=== PATIENT | female | born 1995 | race Caucasian/White ===

== ENCOUNTER 2018-11-27 04:55 | Inpatient (IN) | payer OTHER ==
[2018-11-27] MEDS ORDERED: AMPICILLIN SODIUM 2 GM VIAL ONE (05:43)
[2018-11-27 05:50] VITALS: BMI 27.1
[2018-11-27] MEDS ORDERED: AMPICILLIN - 2 GM in SODIUM CHLORIDE 100 ML IVPB ONE (06:05)
[2018-11-27] MEDS ORDERED: DEXTROSE 5%-LACTATED RINGERS 1,000 ML IV SCH (06:05)
[2018-11-27 06:39] LABS: BASO % 0.4 % (0-2.0); EOS % 1.1 % (0-4.5); HEMATOCRIT 40.4 % (32.4-45.2); HEMOGLOBIN 14.5 GM/dL (10.7-15.3); LYMPH % 20.6 % (8-40); MCH 35.3 pg (25.7-33.7); MCHC 35.9 g/dl (32.0-36.0); MEAN CELL VOLUME 98.2 fl (80-96); MEAN PLT VOLUME 10.7 fl (7.5-11.1); MONO % 8.2 % (3.8-10.2); NEUT % 69.7 % (42.8-82.8); PLATELET COUNT 114 K/MM3 (134-434); RBC 4.11 M/mm3 (3.60-5.2); WHITE BLOOD COUNT 7.6 K/mm3 (4.0-10.0)
[2018-11-27 07:06] LABS: ANION GAP 10 MMOL/L (8-16); BLOOD UREA NITROGEN 9 mg/dL (7-18); CALCIUM 8.5 mg/dL (8.5-10.1); CHLORIDE 109 mmol/L (98-107); CO2 19 mmol/L (21-32); CREATININE 0.6 mg/dL (0.55-1.3); GLUCOSE,RANDOM 82 mg/dL (74-106); POTASSIUM 3.8 mmol/L (3.5-5.1); SODIUM 138 mmol/L (136-145)
--- NOTE | 2018-11-27 08:16 | HP ---
Past Medical History - Primary Care Physician PCP:: Maryjane Casper - Admission Chief Complaint: 23 Yrs 40.2 weeks IUP onset LP since 4.00AM & SROM since 4.30 AM . 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 Weeks Gestation by Dates: 40.2 ...EDC by Dates: 11/25/18 ...EDC by Sono: 11/25/18 (40.2 weeks ) Infectious Disease: No: AIDS, HIV, STD's, Tuberculosis Psych: No: Addictions, Anxiety, Bipolar, Depression, Panic, Psychosis, Schizophrenia, Other - Past Surgical History Past Surgical History: Yes: None Hx Myomectomy: No Hx Transabdominal Cerclage: No - Smoking History Smoking history: Never smoked Have you smoked in the past 12 months: No - Alcohol/Substance Use Hx Alcohol Use: No History of Substance Use: reports: None Home Medications - Allergies Allergies/Adverse Reactions: Allergies Allergy/AdvReac Type Severity Reaction Status Date / Time No Known Allergies Allergy Verified 11/27/18 05:38 - Home Medications Home Medications: Ambulatory Orders Vitamins (Sjr) - 1 tab PO DAILY 02/25/19 Physical Exam - Maternity Vital Signs: Vital Signs Temperature 98.0 F 11/27/18 05:44 Pulse Rate 63 11/27/18 05:44 Respiratory Rate 20 11/27/18 05:44 Blood Pressure 114/63 11/27/18 05:44 O2 Sat by Pulse Oximetry (%) Constitutional: Yes: Well Nourished Eyes: Yes: WNL HENT: Yes: WNL Neck: Yes: WNL Cardiovascular: Yes: WNL Lungs: Clear to auscultation Breast(s): Yes: WNL - Abdominal Exam/OB Fundal Height: 38 Number of Fetuses: Single Presentation: Vertex Contractions: Yes Regularity: Regular (2-5 min) Intensity: Mild/Mod Monitor Mode: External Heart Rate (range): 125 Heart Rate [facility] Category: I Accelerations: Uniform Decelerations: None - Vaginal Exam/OB Dilatation (cm): 1 cm Effacement (%): 50 Amniotic Membrane Status: Ruptured Amniotic Fluid: Yes: Clear Presentation: Vertex/Position Station: -3 - Physical Exam Musculoskeletal: Yes: WNL Extremities: Yes: WNL. No: Calf Tenderness Edema: No Integumentary: Yes: Tattoos Deep Tendon Reflex Grade: Normal +2 ...Motor Strength: WNL Psychiatric: Yes: WNL, Alert, Oriented - Labs Lab Results: CBC, BMP 11/27/18 06:05 11/27/18 06:05 Problem List - Problems (1) Post-term , 40-42 weeks of gestation Code(s): O48.0 - POST-TERM (2) SROM (spontaneous rupture of membranes) Code(s): CKJ4858 - (3) Positive GBS test Code(s): B95.1 - STREPTOCOCCUS, GROUP B, CAUSING DISEASES CLASSD ELSWHR Assessment/Plan 23 years 40.2 weeks SROM , in early labor GBS pos , rx IV Ampicillin prophylaxis Plan Trial of labor for Vaginal delivery I handed over care to Dr Villalba stitch bonding machine tender helper at 8.00AM for labor management
[2018-11-27 08:44] LABS: INR 1.01 (0.83-1.09); PROTHROMBIN TIME (PATIENT) 11.9 SEC (9.7-13.0)
[2018-11-27 08:47] LABS: ACTIVATED PTT 29.2 SECONDS (25.2-36.5)
--- NOTE | 2018-11-27 09:28 | PN ---
Progress Note, Labor Vaginal Exam #1 Labor Exam Time: 09:27 Heart Rate (range): Cat I Dilatation: 3 Effacement (%): 70 Amniotic Membrane Status: Intact Presentation: Vertex/Position Station: -3 Remarks: Patient comfortable with ctx. Cervical change Wants to continue walking Anticipate SARA Villalba MD
[2018-11-27] MEDS: AMPICILLIN - 1 GM in SODIUM CHLORIDE 100 ML IVPB SCH ×4 (10:00→22:10)
[2018-11-27] MEDS: DEXTROSE 5%-LACTATED RINGERS 1,000 ML IV SCH (10:11)
[2018-11-27] MEDS ORDERED: BUTORPHANOL TARTRATE 1 MG/ML VIAL IVPB ONE (11:56)
[2018-11-27] MEDS ORDERED: PROMETHAZINE HCL 25 MG/1 ML VIAL IVPB ONE (11:56)
[2018-11-27] MEDS ORDERED: PROMETHAZINE HCL 25 MG/1 ML VIAL ONE (16:08)
[2018-11-27] MEDS ORDERED: BUTORPHANOL TARTRATE 1 MG/ML VIAL ONE ×2 (16:08)
--- NOTE | 2018-11-27 17:38 | PN ---
Progress Note, Labor Vaginal Exam #2 Labor Exam Date: 11/27/18 Labor Exam Time: 16:05 Heart Rate (range): Cat I Dilatation: 3 Effacement (%): 70 Presentation: Vertex/Position Station: -2 Remarks: Cervix unchanged Start pitocin Anticipate
[2018-11-27] MEDS ORDERED: OXYTOCIN 30 UNITS in 0.9% NS 30 UNIT/500 ML INFUS.BAG IVPB ONE (17:40)
[2018-11-27] MEDS: OXYTOCIN 30 UNITS in 0.9% NS 30 UNIT/500 ML INFUS.BAG IVPB SCH (17:45)
[2018-11-27] MEDS ORDERED: AMPICILLIN SODIUM 1 GM VIAL ONE ×2 (17:56→22:22)
[2018-11-27] MEDS ORDERED: FENTANYL/BUPIVACAINE/NS/PF - PCEA - 50 ML DISP.SYRIN EP ONE (19:21)
--- NOTE | 2018-11-27 19:21 | PN ---
Progress Note, Labor Vaginal Exam #3 Labor Exam Date: 11/27/18 Labor Exam Time: 19:20 Heart Rate (range): Cat I Dilatation: 4 Effacement (%): 90 Amniotic Membrane Status: Ruptured Presentation: Vertex/Position Station: -2 Remarks: More uncomfortable Epidural Continue pitocin D/C to home Maira Villalba MD
[2018-11-27] MEDS ORDERED: NALOXONE HCL 0.4 MG/ML VIAL IVPUSH PRN (20:18)
[2018-11-27] MEDS ORDERED: LIDO 2%/EPI 1:200000 PRESRVFRE (20 ML SDVIAL) ONE (20:19)
[2018-11-27] MEDS: FENTANYL/BUPIVACAINE/NS/PF - PCEA - 50 ML DISP.SYRIN EP SCH (20:40)
--- NOTE | 2018-11-27 21:22 | PN ---
Progress Note, Labor Vaginal Exam #4 Labor Exam Date: 11/27/18 Labor Exam Time: 21:20 Heart Rate (range): Cat I Dilatation: 4 Effacement (%): 90 Amniotic Membrane Status: Intact Presentation: Vertex/Position Station: -2 Remarks: Pt still not comfortable despite epidural, will call Anesthesia for bolus No cervical change since last exam. IUPC placed. Increase pitocin to adequacy, currently at 5mu Cat I tracing Discussed with patient, need for progress in the next 4 hours or possible delivery for arrest of first stage Cont to monitor closely Maira Villalba MD
[2018-11-27] MEDS ORDERED: BUPIVACAINE HCL/PF 0.25% (2.5MG/ML) 10 ML VIAL ONE (22:39)
[2018-11-27] MEDS ORDERED: OXYTOCIN 20 UNITS in 0.9% NS 20 UNIT/1,000 ML INFUS.BAG IV ONE (23:46)
--- NOTE | 2018-11-28 00:57 | PN ---
Progress Note, Labor Vaginal Exam #5 Labor Exam Date: 11/28/18 Labor Exam Time: 00:57 Heart Rate (range): Cat I Dilatation: 10 Effacement (%): 100 Amniotic Membrane Status: Ruptured Presentation: Vertex/Position Station: +2 Remarks: Start pushing Anticipate SARA Villalba MD
[2018-11-28] MEDS: OXYTOCIN 20 UNITS in 0.9% NS 20 UNIT/1,000 ML INFUS.BAG IV SCH ×2 (02:26→09:00)
--- NOTE | 2018-11-28 02:42 | PROC ---
Obstetrical Vaccum Device - Doc. Following Use of Vaccum Device Indications for use: NRFHR, Maternal Exhaustion Risks and Benefits Explained: Yes Consent on Chart: Yes Dilation (0-10): 10 Station: 2 Molding: No Position: OA Caput: Yes Proper placement of cup confirmed: Yes Number of pulls: 3 Number of pop-offs: 0 Duration of time cup on head (min): 2 Total time cup near/at maximum pressure (min): 1 Reduction of pressure between contractions: Yes Outcome: Sucessful VAVD Appearance of head on delivery: Caput Mechanical Spreader Operator present during vacuum extraction: No Mechanical Spreader Operator & nursery staff notified of vacuum extraction: Yes
[2018-11-28] MEDS ORDERED: WITCH HAZEL 50% (TUCKS) 40 PAD/JAR PAD TP PRN (02:48)
[2018-11-28] MEDS ORDERED: BISACODYL 10 MG SUPP.RECT RC PRN (02:48)
[2018-11-28] MEDS ORDERED: BENZOCAINE 20% 57 GM BOTTLE TP PRN (02:48)
[2018-11-28] MEDS ORDERED: BENZOCAINE 28 GM HEMORRHOIDAL OINTMENT TP PRN (02:48)
[2018-11-28] MEDS ORDERED: METHYLERGONOVINE MALEATE 0.2 MG/1 ML AMP IM PRN (02:48)
--- NOTE | 2018-11-28 02:48 | PN ---
Delivery - Delivery Vaginal Delivery: Vacuum Assist Type of Anesthesia: Epidural Episiotomy/Laceration: Right Mediolateral EBL (cc): 350 Delivery, Single - Stages of Labor Placenta: Yes: Spontaneous - Condition of Infant Infant Gender: Female Position: Right, OA - 1 Minute Total Score: 9 5 Minutes Total Score: 9 - Feeding Plan Initial Plan: Elected not to breastfeed exclusively throughout hospitalization Remarks - Remarks Remarks: Despite one hour of pushing with good coaching, poor maternal effort and worsening FHT with deep late decerlations to the 70's with resultant tachycardia to the 150's where the previous baseline had been 130's. Minimal variability. Decision made to proceed with VAVD. Patient consented regarding risk of delivery, including failure requiring delivery. Bladder drained. position +2 station with small caput. RANJIT orientation. Kiwi vacuum applied between pushes, checked and cleared of vaginal tissue. With maternal effort, vacuum pumped to 600mg and gentle downward traction applied with her three pushes. No pop offs. Vacuum deflated between pushes. Repumped to 600mg with her next pushes and station brought to after her third push. No pop offs. Vacuum removed. Right mediolateral episiotomy cut. With maternal effort, patient delivered spontaneously a VFI from RANJIT position. No nuchal. No meconium. Spontaneous delivery of the anterior shoulder. Cord clamped and cut quickly. Infant handed off. Weight pending. Apgars 9/9. Nursery staff present for delivery. Spontaneous delivery of intact placenta with 3VC. Fundus firm. Right mediolateral episiotomy repaired with 2-0 chromic with good hemostasis and cosmesis. No other lacerations noted. EBL 350ml. Mother and baby doing well. Nadya Villalba MD
[2018-11-28] MEDS: AMPICILLIN - 1 GM in SODIUM CHLORIDE 100 ML IVPB SCH ×2 (04:04→07:07)
[2018-11-28] MEDS: FERROUS SO4 325 MG TABLET (FP) PO SCH ×3 (08:13→17:37)
[2018-11-28] MEDS: PRENATAL VITAMINS W/ FOLIC ACID TABLET (FP) PO SCH (09:21)
[2018-11-28] MEDS: IBUPROFEN 600 MG TABLET (FP) PO PRN ×2 (12:45→21:03)
[2018-11-28] MEDS: ACETAMINOPHEN 325 MG TABLET (FP) PO PRN ×2 (12:47→21:04)
[2018-11-28] MEDS: DEXTROSE 5%-LACTATED RINGERS 1,000 ML IV SCH (20:41)
[2018-11-28] MEDS: OXYTOCIN 30 UNITS in 0.9% NS 30 UNIT/500 ML INFUS.BAG IVPB SCH (20:41)
[2018-11-28] MEDS: FENTANYL/BUPIVACAINE/NS/PF - PCEA - 50 ML DISP.SYRIN EP SCH (20:41)
--- NOTE | 2018-11-29 06:19 | PN ---
Post Progress Note - Subjective Subjective: no complains except cramps Post Day: 1 Type of Delivery: Vacuum Assist Vag Del Vital Signs: Vital Signs Temperature 97.4 F L 11/29/18 02:00 Pulse Rate 56 L 11/29/18 02:00 Respiratory Rate 18 11/29/18 02:00 Blood Pressure 102/48 L 11/29/18 02:00 O2 Sat by Pulse Oximetry (%) 100 11/28/18 03:30 Breast Exam: Yes: Soft, Other (attempting BF , & bottle feeding also) Uterus: Yes: Fundus Firm, Fundus below umbilicus, Non-tender Lochia: Yes: Rubra Lochia, amount: Moderate Extremities: Yes: Calves non-tender Perineum: Yes: Episiotomy (perineal soreness) Activity: Ambulating - Labs Labs: CBC WBC 7.6 K/mm3 (4.0-10.0) 11/27/18 06:05 RBC 4.11 M/mm3 (3.60-5.2) 11/27/18 06:05 Hgb 14.5 GM/dL (10.7-15.3) 11/27/18 06:05 Hct 40.4 % (32.4-45.2) 11/27/18 06:05 MCV 98.2 fl (80-96) H 11/27/18 06:05 MCH 35.3 pg (25.7-33.7) H 11/27/18 06:05 MCHC 35.9 g/dl (32.0-36.0) 11/27/18 06:05 RDW 13.0 % (11.6-15.6) 11/27/18 06:05 Plt Count 114 K/MM3 (134-434) L 11/27/18 06:05 MPV 10.7 fl (7.5-11.1) 11/27/18 06:05 Absolute Neuts (auto) 5.3 K/mm3 (1.5-8.0) 11/27/18 06:05 Neutrophils % 69.7 % (42.8-82.8) 11/27/18 06:05 Lymphocytes % 20.6 % (8-40) 11/27/18 06:05 Monocytes % 8.2 % (3.8-10.2) 11/27/18 06:05 Eosinophils % 1.1 % (0-4.5) 11/27/18 06:05 Basophils % 0.4 % (0-2.0) 11/27/18 06:05 Nucleated RBC % 0 % (0-0) 11/27/18 06:05 Problem List - Problems (1) Post-term , 40-42 weeks of gestation Code(s): O48.0 - POST-TERM (2) SROM (spontaneous rupture of membranes) Code(s): [id number] - (3) Positive GBS test Code(s): B95.1 - STREPTOCOCCUS, GROUP B, CAUSING DISEASES CLASSD ELSWHR (4) Status post vacuum-assisted vaginal delivery Code(s): Z87.59 - PERSONAL HISTORY OF COMP OF PREG, CHLDBRTH AND THE PUERP (5) Encounter for care and examination after delivery Code(s): Z39.2 - ENCOUNTER FOR ROUTINE FOLLOW-UP Assessment/Plan stable plan pp cbc today discharge tomorrow.
[2018-11-29] MEDS: FERROUS SO4 325 MG TABLET (FP) PO SCH ×3 (07:25→17:18)
[2018-11-29 07:31] LABS: BASO % 0.4 % (0-2.0); EOS % 2.4 % (0-4.5); HEMOGLOBIN 12.4 GM/dL (10.7-15.3); LYMPH % 29.4 % (8-40); MCH 35.3 pg (25.7-33.7); MCHC 35.4 g/dl (32.0-36.0); MEAN CELL VOLUME 99.6 fl (80-96); MEAN PLT VOLUME 10.4 fl (7.5-11.1); MONO % 10.8 % (3.8-10.2); PLATELET COUNT 99 K/MM3 (134-434); RBC 3.52 M/mm3 (3.60-5.2); RDW 13.2 % (11.6-15.6); WHITE BLOOD COUNT 8.2 K/mm3 (4.0-10.0)
[2018-11-29] MEDS: PRENATAL VITAMINS W/ FOLIC ACID TABLET (FP) PO SCH (09:18)
[2018-11-29] MEDS: IBUPROFEN 600 MG TABLET (FP) PO PRN ×2 (10:24→22:26)
[2018-11-29] MEDS: ACETAMINOPHEN 325 MG TABLET (FP) PO PRN ×2 (10:26→22:26)
[2018-11-29] MEDS ORDERED: SENNOSIDES/DOCUSATE COMBO (SENNA PLUS) TABLET (UD) PO PRN (22:00)
[2018-11-30] MEDS: FERROUS SO4 325 MG TABLET (FP) PO SCH (08:18)
[2018-11-30 08:30] VITALS: BP 97/56; PULSE 60; TEMP 97.6
[2018-11-30] MEDS: IBUPROFEN 600 MG TABLET (FP) PO PRN (09:59)
[2018-11-30] MEDS: PRENATAL VITAMINS W/ FOLIC ACID TABLET (FP) PO SCH (10:00)
[2018-11-30] MEDS: ACETAMINOPHEN 325 MG TABLET (FP) PO PRN (10:00)
--- NOTE | 2018-11-30 10:01 | DS ---
Physical Exam-SOLAR MANAGER Vital Signs: Vital Signs Temperature 97.6 F 11/30/18 08:29 Pulse Rate 60 11/30/18 08:29 Respiratory Rate 20 11/30/18 08:29 Blood Pressure 97/56 L 11/30/18 08:29 O2 Sat by Pulse Oximetry (%) 100 11/28/18 03:30 Constitutional: Yes: Well Nourished Eyes: Yes: WNL HENT: Yes: WNL Neck: Yes: WNL Cardiovascular: Yes: WNL Respiratory: Yes: WNL Gastrointestinal: Yes: WNL, Normal Bowel Sounds ...Rectal Exam: Yes: WNL Renal/: Yes: WNL ....Post : Yes: Uterus firm (c/o cramps), Moderate lochia rubra (perineum intact, epi wound healing , slight soreness) Breast(s): Yes: WNL (BF , breast not engorgd). No: Mass Musculoskeletal: Yes: WNL Extremities: Yes: WNL. No: Calf Tenderness Edema: Yes Edema: LLE: 1+, RLE: 1+ Neurological: Yes: WNL ...Motor Strength: WNL Psychiatric: Yes: WNL Labs: CBC, BMP 11/29/18 07:00 11/27/18 06:05 Delivery - Delivery Vaginal Delivery: Vacuum Assist Type of Anesthesia: Epidural Episiotomy/Laceration: Right Mediolateral EBL (cc): 350 Delivery, Single - Stages of Labor Date 1st Stage Initiatied: 11/27/18 Time 1st Stage Initiated: 05:00 Date 2nd Stage Initiated: 11/28/18 Time 2nd Stage Initiated: 01:00 Date of Delivery: 11/28/18 Time of Delivery: 02:24 Time Placenta Delivered: 02:26 Placenta: Yes: Spontaneous - Condition of Infant Airplane Cabin Attendant/Ring Cutter Lathe Operator Present: No Gender: Female Weight: 7 lb 6 oz Position: Right, OA Total Hours ROM (Hrs/Mins): 22Hrs/26Min - 1 Minute Total Score: 9 5 Minutes Total Score: 9 - [place] Feeding Plan Initial Plan: Elected not to breastfeed exclusively throughout hospitalization Remarks - Remarks Remarks: pp course uneventful. pp instructions given. discharge today Discharge Summary Reason For Visit: LABOR ADMIT Current Active Problems Encounter for care and examination after delivery (Acute) Positive GBS test (Acute) Post-term , 40-42 weeks of gestation (Acute) SROM (spontaneous rupture of membranes) (Acute) Status post vacuum-assisted vaginal delivery (Acute) Condition: Stable - Instructions Diet, Activity, Other Instructions: Regular Diet Referrals: Nadya Villalba MD [Staff Physician] - Disposition: HOME - Home Medications Comprehensive Discharge Medication List: Ambulatory Orders Vitamins (Sjr) - 1 tab PO DAILY 11/27/18 Ibuprofen 600 mg PO Q6H PRN #30 tablet 11/29/18
== END 2018-11-30 11:15 | disposition home or self-care (01) | DRG 807 ==
LOC: JDEL 04:55 → JLDR 05:30 → J3W 11-28 04:30
PROVIDERS: ADMIT Obstetrics & Gynecology; ATTEND Obstetrics & Gynecology
PROC: 10D07Z6 Extraction of Products of Conception, Vacuum, Via Natural or Artificial Opening (ICD-10-PCS; principal; 2018-11-28)
PROC: 0W8NXZZ Division of Female Perineum, External Approach (ICD-10-PCS; 2018-11-28)
DX: O48.0 Post-term pregnancy (principal); O99.824 Streptococcus B carrier state complicating childbirth; Z37.0 Single live birth; Z3A.40 40 weeks gestation of pregnancy
CPT/HCPCS: 36415; 59409; 80048; 85025; 85610; 85730; 86593; 86850; 86900; 86901